=== PATIENT | male | born 1995 | race African-American/Black ===

== ENCOUNTER 2019-07-22 22:34 | Emergency (ER) | payer SELFPAY ==
[~2019-07-22] VITALS: Ht 188 cm; Wt 115.9 kg
[2019-07-23 02:00] VITALS: BP 119/73
== END 2019-07-23 02:55 | disposition home or self-care (01) ==
LOC: EMS 22:35
DX: F12.929 Cannabis use, unspecified with intoxication, unspecified (principal)